=== PATIENT | female | born 1950 | race Hispanic/Latino ===

== ENCOUNTER 2016-05-02 06:53 | Day surgery (SDC) | payer MEDICARE ==
[2016-05-02] MEDS ORDERED: DIPRIVAN 10 MG/ML IV ONE ×2 (07:54)
[2016-05-02] MEDS ORDERED: NACL 0.9% 1000 ML 1,000 ML IV SCH (11:00)
--- NOTE | 2016-05-02 11:01 | Anesthesia Consultation ---
Anesthesia Consult and Med Hx Date of service: 05/02/16 - Airway Anesthetic Teeth Evaluation: Good, Crowns, Bridges ROM Head & Neck: Adequate Mental/Hyoid Distance: Inadequate Mallampati Class: Class II Intubation Access Assessment: Probably Good - Pulmonary Exam CTA: Yes - Cardiac Exam Cardiac Exam: RRR - Pre-Operative Health Status ASA Pre-Surgery Classification: ASA3 Proposed Anesthetic Plan: MAC - Pulmonary Hx Smoking: No SOB: Yes Hx Sleep Apnea: Yes (2015) - Cardiovascular System Hx Hypertension: No - Central Nervous System Hx Neuromuscular Disorder: No Hx Back Pain: No - Gastrointestinal Hx Gastroesophageal Reflux Disease: Yes - Endocrine Hx Hypothyroidism: Yes - Hematic Hx Anemia: No Hx Sickle Cell Disease: No - Other Systems Hx Alcohol Use: No Hx Substance Use: No Hx Cancer: No Hx Obesity: Yes (BMI 38)
--- NOTE | 2016-05-02 11:01 | Anesthesia Day of Surgery ---
Anesthesia Day of Surgery - Day of Surgery Patient Examined: Yes Patient H&P Reviewed: Yes Patient is NPO: Yes
[2016-05-02] MEDS ORDERED: XYLOCAINE MPF 2% ONE (11:13)
[2016-05-02] MEDS ORDERED: WATER FOR IRRIG STERILE IR ONE (11:22)
[2016-05-02 12:06] VITALS: BP 130/70
--- NOTE | 2016-05-02 12:21 | Operative Report ---
SURGEON: Warner Gold MD. SIDE PIECE COVERER: Kaleb Rockwell MD PREOPERATIVE DIAGNOSES: Dyspepsia and workup for bariatric surgery. POSTOPERATIVE DIAGNOSIS: Hiatal hernia. PROCEDURE PERFORMED: Esophagogastroduodenoscopy. INDICATION FOR PROCEDURE: The patient is a 66-year-old female that is undergoing a workup for bariatric surgery and complains of dyspepsia. After discussing risks and benefits of the procedure, she decided to consent for it. DESCRIPTION OF PROCEDURE: The patient was brought to the endoscopy suite, placed on the stretcher in left lateral position. MAC anesthesia was given by the anesthesia team. A timeout was called and the patient and procedure were correct, so we proceeded to insert the endoscope into the oropharynx, esophagus, stomach, and duodenum of the patient. A circumferential assessment was done of the mucosa and no gross pathology was visualized in the duodenum as we retrieved slowly the scope into the antrum of the stomach. Nothing major was encountered. Then, we retroflexed the endoscope and assessed the fundus of the stomach. Some fluid was encountered that was suctioned and then a small hernia was visualized. No other abnormalities were encountered. Then, we deflated the stomach and retrieved the endoscope into the esophagus. The GE junction was visualized and a hiatal hernia was again confirmed. Then, we retrieved the endoscope into the esophagus and oropharynx. The patient tolerated very well the procedure and was sent to post-endoscopy recovery room. JOB# [id number] JORDI/ALEX
--- NOTE | 2016-05-02 13:19 | Post Anesthesia Evaluation ---
- Post Anesthesia Evaluation Patient Participated: Yes Airway Patent: Yes Stable Respiratory Function: Yes Nausea/Vomiting: No Temp > 96.8F: Yes Pain Manageable: Yes Adequeate Hydration: Yes Anesthesia Complications: No Block Receding Appropriately: Not Applicable Patient on Ventilator: No
== END 2016-05-02 06:54 | disposition home or self-care (01) ==
LOC: GIO 06:53
PROVIDERS: ATTEND Specialist
DX: K44.9 Diaphragmatic hernia without obstruction or gangrene (principal); K21.9 Gastro-esophageal reflux disease without esophagitis; M06.9 Rheumatoid arthritis, unspecified; E78.00 Pure hypercholesterolemia, unspecified; E03.9 Hypothyroidism, unspecified; E66.9 Obesity, unspecified; Z68.38 Body mass index [BMI] 38.0-38.9, adult; Z96.642 Presence of left artificial hip joint; Z90.710 Acquired absence of both cervix and uterus; Z98.41 Cataract extraction status, right eye; Z98.42 Cataract extraction status, left eye; Z98.890 Other specified postprocedural states; Z82.49 Family history of ischemic heart disease and other diseases of the circulatory system; Z83.49 Family history of other endocrine, nutritional and metabolic diseases
CPT/HCPCS: 43235; J2704; J7030

== ENCOUNTER 2016-06-12 09:02 | Outpatient (CLI) | payer MEDICARE ==
--- NOTE | 2016-06-12 13:00 | Mammography Report ---
BILATERAL DIGITAL SCREENING MAMMOGRAM with CAD: 06/12/16 09:02:00 CLINICAL: Routine screening. COMPARISON:05/31/15 FINDINGS: The breasts are heterogeneously dense, which may obscure small masses. A right retroareolar cyst is slightly smaller compared to prior exams.No architectural distortion or suspicious calcifications.Left asymmetry on the CC view requires additional imaging. IMPRESSION: Left asymmetry requiring further workup. BI-RADS CATEGORY: 0 -- Additional Imaging Evaluation Required RECOMMENDATION: Recall for left lateralmedial and magnification CC views and left breast ultrasound if needed. ACR BI-RADS MAMMOGRAPHIC CODES: 0 = Needs additional imaging evaluation; 1 = Negative; 2 = Benign; 3 = Probably benign; 4 = Suspicious; 5 = Malignant; 6 = Known biopsy-proven malignancy COMMENT: 1. Dense breast tissue, i.e., adenosis, fibrocystic changes, etc., may obscure an underlying neoplasm. 2. Approximately 10% of cancers are not detected with mammography. 3. A negative mammography report should not delay biopsy if a clinically suspicious mass is present. COMMENT: Patient follow-up letters are generated via our [email or web address] application.
== END 2016-06-12 09:03 | disposition home or self-care (01) ==
LOC: SPVWC 09:02
PROVIDERS: ATTEND Internal Medicine
DX: Z12.31 Encounter for screening mammogram for malignant neoplasm of breast (principal)
CPT/HCPCS: 77067; G0202

== ENCOUNTER 2016-06-30 08:57 | Outpatient (CLI) | payer MEDICARE ==
--- NOTE | 2016-06-30 09:51 | Mammography Report ---
LEFT DIGITAL DIAGNOSTIC MAMMOGRAM : 06/30/16 08:57:00 CLINICAL: Recalled for asymmetry. COMPARISON:06/12/16 screening FINDINGS: Lateralmedial and spot magnification and CC views were performed. Satisfactory effacement of the previously described asymmetry on the spot view. The lateral view is negative. IMPRESSION: No mammographic evidence of malignancy. BI-RADS CATEGORY: 2 - - Benign RECOMMENDATION: Routine mammographic screening in one year. ACR BI-RADS MAMMOGRAPHIC CODES: 0 = Needs additional imaging evaluation; 1 = Negative; 2 = Benign; 3 = Probably benign; 4 = Suspicious; 5 = Malignant; 6 = Known biopsy-proven malignancy COMMENT: 1. Dense breast tissue, i.e., adenosis, fibrocystic changes, etc., may obscure an underlying neoplasm. 2. Approximately 10% of cancers are not detected with mammography. 3. A negative mammography report should not delay biopsy if a clinically suspicious mass is present. COMMENT: Patient follow-up letters are generated via our [employer] application.
== END 2016-06-30 08:58 | disposition home or self-care (01) ==
LOC: SPVWC 08:57
PROVIDERS: ATTEND Internal Medicine
DX: R92.8 Other abnormal and inconclusive findings on diagnostic imaging of breast (principal)
CPT/HCPCS: G0206-LT